=== PATIENT | male | born 1975 ===

== ENCOUNTER 2020-06-24 10:56 | Inpatient (IN) | payer BC ==
[2020-06-24 11:37] LABS: HEMOGLOBIN 13.9 g/dL (13.5-17.0); MEAN CORPUSCULAR HEMOGLOBIN 32.8 pg (27.0-33.4); MEAN CORPUSCULAR HGB CONC 35.7 g/dL (32.0-36.0); MEAN CORPUSCULAR VOLUME 92 fl (80-97); PLATELET COUNT 210 10^3/uL (150-450); RED BLOOD COUNT 4.24 10^6/uL (4.35-5.55); RED CELL DISTRIBUTION WIDTH 13.2 % (11.5-14.0); WHITE BLOOD COUNT 7.5 10^3/uL (4.0-10.5)
[2020-06-24] MEDS ORDERED: METHYLPREDNISOLONE INJ 125 MG/2 ML SDV IV ONE (11:51)
[2020-06-24] MEDS ORDERED: ALBUTEROL SULFATE 0.083% NEB 2.5 MG/3 ML AMPUL NEB ONE ×2 (11:51→12:22)
[2020-06-24 11:52] LABS: ALBUMIN 3.9 g/dL (3.5-5.0); ALKALINE PHOSPHATASE 66 U/L (38-126); ANION GAP 10 (5-19); ASPARTATE AMINO TRANSFERASE 27 U/L (17-59); BILIRUBIN,DIRECT 0.1 mg/dL (0.0-0.4); BILIRUBIN,TOTAL 1.6 mg/dL (0.2-1.3); BLOOD UREA NITROGEN 19 mg/dL (7-20); CALCIUM 8.8 mg/dL (8.4-10.2); CARBON DIOXIDE 20 mmol/L (22-30); CHLORIDE 101 mmol/L (98-107); GLUCOSE 120 mg/dL (75-110); POTASSIUM 4.2 mmol/L (3.6-5.0); TOTAL PROTEIN 7.1 g/dL (6.3-8.2)
--- NOTE | 2020-06-24 11:58 | RADIOLOGY REPORT (SQ) ---
EXAM DESCRIPTION: CHEST SINGLE VIEW IMAGES COMPLETED DATE/TIME: 06/24/2020 11:47 am REASON FOR STUDY: SOB COMPARISON: None. EXAM PARAMETERS: NUMBER OF VIEWS: One view. TECHNIQUE: Single frontal radiographic view of the chest acquired. RADIATION DOSE: NA LIMITATIONS: None. FINDINGS: LUNGS AND PLEURA: Ill-defined nodular opacity at the right lung base. No dense consolidat ion. No pleural effusion or pneumothorax. MEDIASTINUM AND HILAR STRUCTURES: No masses. Contour normal. HEART AND VASCULAR STRUCTURES: Heart normal in size. Normal vasculature. BONES: No acute findings. HARDWARE: None in the chest. OTHER: No other significant finding. IMPRESSION: Ill-defined nodular opacity at the right lung base, possibly focal airspace disease, nod ule or scarring. Recommend two-view follow-up to ensure resolution. TECHNICAL DOCUMENTATION: JOB ID: [id number] 2010 [employer]- All Rights Reserved Reading location - IP/workstation name: [email or web address]
[2020-06-24] MEDS: MAGNESIUM SULFATE/D5W 1 GM/100 ML RTUPB IV SCH ×2 (12:05→13:19)
[2020-06-24 12:09] LABS: ABSOLUTE LYMPHOCYTES# (MANUAL) 0.5 10^3/uL (0.5-4.7); ABSOLUTE MONOCYTES # (MANUAL) 0.2 10^3/uL (0.1-1.4); BAND NEUTROPHILS % (MANUAL) 4 % (3-5); BASOPHILS % (MANUAL) 0 % (0-2); EOSINOPHILS % (MANUAL) 0 % (0-6); LYMPHOCYTES % (MANUAL) 7 % (13-45); MONOCYTES % (MANUAL) 3 % (3-13); SEGMENTED NEUTROPHILS % (MAN) 86 % (42-78); TOTAL CELLS COUNTED 100
[2020-06-24 12:10] LABS: PLATELET COMMENT ADEQUATE; RBC MORPHOLOGY COMMENT NORMO-CYTIC/CHROMIC
[2020-06-24] MEDS ORDERED: RINGERS SOLUTION,LACTATED 1,000 ML IV ONE (12:25)
--- NOTE | 2020-06-24 12:43 | EKG REPORT ---
SEVERITY:- ABNORMAL ECG - SINUS TACHYCARDIA LEFT ATRIAL ABNORMALITY : Confirmed by: Shamar Fields MD 24-Jun-2020 12:42:49
--- NOTE | 2020-06-24 13:32 | ER Document Report ---
Entered by VEE EM SCRIBE 06/24/20 1144 Acting as scribe for:SCOTTY EAGLE MD ED Respiratory Problem - General Chief Complaint: Asthma Exacerbation Stated Complaint: SHORTNESS OF BREATH Time Seen by Provider: 06/24/20 11:41 Primary Care Provider: NADYA RODRIGUEZ MD [Primary Care Provider] - Follow up as needed Mode of Arrival: Medic Information source: Patient Notes: This 45 year old male patient with a history of asthma requiring intubation x4 (last in 1995) presents to the ED today via EMS with complaints of asthma exa cerbation. Patient states that has been increasingly short of breath for the past x1 week. He reports associated productive cough with clear mucus, but denies fever, nausea, or vomiting. He received a Xopenex breathing treatment and Solumedrol 125 mg IV via EMS. He did not receive a flu shot this year. Review of the patient external pharmacy records reveal that the patient was prescribed Prednisone 20 mg TID on 06/18 and Augmentin on 06/23. - Related Data Allergies/Adverse Reactions: atropine Adverse Reaction (Verified 06/24/20 11:09) Past Medical History - General Information source: Patient - Social History Smoking Status: Never Smoker Cigarette use (# per day): No Chew tobacco use (# tins/day): No Smoking Education Provided: No Frequency of alcohol use: Occasional Drug Abuse: None Family History: Reviewed & Not Pertinent Patient has suicidal ideation: No Patient has homicidal ideation: No Pulmonary Medical History: Reports: Hx Asthma, Hx Intubation - x4, last in 1995 Review of Systems - Review of Systems Constitutional: See HPI. denies: Fever EENT: No symptoms reported Cardiovascular: No symptoms reported Respiratory: See HPI, Cough, Short of breath, Sputum Gastrointestinal: See HPI. denies: Nausea, Vomiting Genitourinary: No symptoms reported Male Genitourinary: No symptoms reported Musculoskeletal: No symptoms reported Skin: No symptoms reported Hematologic/Lymphatic: No symptoms reported Neurological/Psychological: No symptoms reported -: Yes All other systems reviewed and negative Physical Exam - Vital signs Vitals: Temp Resp BP Pulse Ox 97.8 F 12 130/78 H 97 06/24/20 11:13 06/24/20 11:13 06/24/20 11:13 06/24/20 11:13 - General General appearance: Alert In distress: None - HEENT Head: Normocephalic, Atraumatic Eyes: Normal Pupils: PERRL - Respiratory Respiratory status: Other - Dyspneic with O2 saturation of 98% on 2L O2 via NC Chest status: Nontender, Prolonged expirations Breath sounds: Wheezing - Diffuse inspiratory and expiratory wheezing Chest palpation: Normal - Cardiovascular Rhythm: Regular Heart sounds: Normal auscultation Murmur: No Friction rub: No Gallop: None auscultated - Abdominal Inspection: Normal Distension: No distension Bowel sounds: Normal Tenderness: Nontender - Abdomen soft Organomegaly: No organomegaly - Back Back: Normal, Nontender - Extremities General upper extremity: Normal inspection General lower extremity: Normal inspection. No: Edema - Neurological Neuro grossly intact: Yes Orientation: AAOx4 [place] Coma Scale Eye Opening: Spontaneous [place] Coma Scale Verbal: Oriented [place] Coma Scale Motor: Obeys Commands [place] Coma Scale Total: 15 - Psychological Associated symptoms: Normal affect, Normal mood - Skin Skin Temperature: Warm Skin Moisture: Dry Skin Color: Normal Course - Re-evaluation Re-evalutation: 06/24/20 12:26 The patient was evaluated during the global COVID-19 pandemic and that diagnosis was suspected/considered upon their initial presentation. Their evaluation, treatment and testing was consistent with current guidelines for patients who present with complaints or symptoms that may be related to COVID-19. The patient came in by EMS and received a needed Xopenex breathing treatment and Solu-Medrol 125 mg IV. I was not aware of these treatments being done prior to seeing the patient so he got an additional dose of Solu-Medrol. 06/24/20 13:32 At this time the patient is on his second albuterol treatment. He states he feels like his breathing is getting better. On auscultation his wheezes are considerably improved from the first time I listen to him. 06/24/20 15:20 - Vital Signs Vital signs: Temp Pulse Resp BP Pulse Ox 98.2 F 115 H 12 163/98 H 98 06/24/20 14:45 06/24/20 11:15 06/24/20 15:01 06/24/20 15:00 06/24/20 15:01 - Laboratory Results Result Diagrams: 06/24/20 11:21 06/24/20 11:21 Laboratory Results Interpreted: 06/24/20 06/24/20 11:21 11:21 RBC 4.24 L Seg Neuts % (Manual) 86 H Lymphocytes % (Manual) 7 L Sodium 130.8 L Carbon Dioxide 20 L Glucose 120 H Total Bilirubin 1.6 H Critical Laboratory Results Reviewed: No Critical Results - Radiology Results Critical Radiology Results Reviewed: No Critical Results - Chest x-ray shows ill-defined nodular opacity right lung base, possibly focal airspace disease, nodule, or scarring. Recommend 2 view follow-up to ensure resolution. Suspect this is scarring due to the patient's past history of being intubated 4 times. - EKG Interpretation by Me EKG shows normal: Sinus rhythm, [place], Intervals, QRS Complexes, ST-T Waves Rate: Tachycardia - 105 P Waves: LAE When compared to previous EKG there are: Previous EKG unavailable - Consults Dr. Dove Time consulted: 14:35 Consulted provider: will come to ER Discharge - Discharge Clinical Impression: Asthma with acute exacerbation in adult Qualifiers: Asthma severity: moderate Asthma persistence: persistent Qualified Code(s): J45.41 - Moderate persistent asthma with (acute) exacerbation Condition: Stable Disposition: ADMITTED OBSERVATION Admitting Provider: Petty (Hospitalist) Unit Admitted: Medical Floor Referrals: NADYA RODRIGUEZ MD [Primary Care Provider] - Follow up as needed I personally performed the services described in the documentation, reviewed and edited the documentation which was dictated to the scribe in my presence, and it accurately records my words and actions.
[2020-06-24] MEDS ORDERED: ACETAMINOPHEN 325 MG TABLET PO PRN (16:28)
[2020-06-24] MEDS ORDERED: ONDANSETRON HCL INJ/PF 4 MG/2 ML SDV IV PRN (16:28)
[2020-06-24] MEDS: FLUTICASONE/VILANTEROL 100-25 MCG/DOSE IH SCH (18:15)
--- NOTE | 2020-06-24 19:30 | PDOC H&P ---
History of Present Illness Admission Date/PCP: 06/24/20 15:25 NADYA RODRIGUEZ MD Patient complains of: SOB History of Present Illness: PARAMJIT HALL is a 45 year old male, hx of asthma with 4 previous intubation last one 1995 for acute respiratory failure, HTN who came in the ED today due to shortness of breath. According to the patient he has been having shortness of breath with minimal cough for the past 1 week. He has increasingly used his rescue inhaler but still feels short of breath with associated wheezing. He denied any fever or recent exposure to Covid. ED blood pressure was 124/84, pulse rate of 87, respiratory rate of 18 O2 saturation of 96% on 2 L of nasal cannula, temperature 98.2. CBC was unremarkable, CMP showed mild hyponatremia 1 30.8, bicarb of 20, creatinine 0.9. Chest x-ray was unremarkable He consulted telehealth and was prescribed prednisone 1 week ago which did not help with his symptoms. Hospitalist service was called for further evaluation and management. Past Medical History Cardiac Medical History: Reports: Hypertension Pulmonary Medical History: Reports: Asthma, Intubation - x4, last in 1995 EENT Medical History: Reports: None Neurological Medical History: Reports: None Endocrine Medical History: Reports: None Renal/ Medical History: Reports: None Malignancy Medical History: Reports: None Past Surgical History Past Surgical History: Reports: Other - lip biopsy Social History Information Source: Patient Smoking Status: Never Smoker Electronic Cigarette use?: No Frequency of Alcohol Use: Occasional Hx Recreational Drug Use: No Drugs: None - Advance Directive Resuscitation Status: Full Code Family History Family History: CAD, DM Parental Family History Reviewed: Yes Children Family History Reviewed: Yes Sibling(s) Family History Reviewed.: Yes Medication/Allergy Home Medications: Albuterol Sulfate [Albuterol Sulfate Hfa] 2 puff PO Q4HP PRN 06/24/20 Amoxicillin/Potassium Clav [Augmentin 875-125 Tablet] 1 tab PO BID 06/24/20 Benzonatate 200 mg PO TID 06/24/20 Fluticasone/Salmeterol [Advair 100-50 Diskus 14 Dose/Diskus] 1 inh IH Q12 06/24/20 Guaifenesin [Mucinex] 1,200 mg PO BID 06/24/20 Prednisone [Deltasone 10 mg Tablet] 10 mg PO 5XD 06/24/20 Allergies/Adverse Reactions: atropine Adverse Reaction (Verified 06/24/20 11:09) Review of Systems Constitutional: ABSENT: chills, fatigue, fever(s), night sweats, weakness Eyes: ABSENT: visual disturbances Ears: ABSENT: hearing changes Nose, Mouth, and Throat: ABSENT: mouth pain Cardiovascular: ABSENT: edema, orthropnea, palpitations Respiratory: PRESENT: cough, dyspnea Musculoskeletal: ABSENT: back pain, deformity Integumentary: ABSENT: diaphoresis Neurological: ABSENT: abnormal movements, abnormal speech Physical Exam Vital Signs: Temp Pulse Resp BP Pulse Ox 98.2 F 87 18 124/84 96 06/24/20 16:47 06/24/20 16:47 06/24/20 16:47 06/24/20 16:47 06/24/20 16:47 Intake & Output 06/23/20 06/24/20 06/25/20 06:59 06:59 06:59 Intake Total 1200 Output Total 1300 Balance -100 Weight 92.986 kg General appearance: PRESENT: cooperative, mild distress Head exam: PRESENT: atraumatic, normocephalic Eye exam: PRESENT: EOMI, PERRLA Mouth exam: PRESENT: moist Neck exam: PRESENT: full ROM Respiratory exam: PRESENT: symmetrical, unlabored, wheezes. ABSENT: crackles, rales Cardiovascular exam: PRESENT: RRR, +S1, +S2 Pulses: PRESENT: +2 pedal pulses bilateral GI/Abdominal exam: PRESENT: normal bowel sounds, soft. ABSENT: rebound, tend erness Extremities exam: PRESENT: full ROM Musculoskeletal exam: PRESENT: full ROM Neurological exam: PRESENT: alert, awake, oriented to person, oriented to place, oriented to time, oriented to situation Psychiatric exam: PRESENT: normal mood Skin exam: PRESENT: normal color Results Laboratory Results: 06/24/20 11:21 06/24/20 11:21 06/24/20 06/24/20 11:21 11:21 WBC 7.5 RBC 4.24 L Hgb 13.9 Hct 39.0 MCV 92 MCH 32.8 MCHC 35.7 RDW 13.2 Plt Count 210 Seg Neutrophils % Not Reportable Sodium 130.8 L Potassium 4.2 Chloride 101 Carbon Dioxide 20 L Anion Gap 10 BUN 19 Creatinine 0.90 Est GFR ( Amer) > 60 Glucose 120 H Calcium 8.8 Total Bilirubin 1.6 H AST 27 Alkaline Phosphatase 66 Total Protein 7.1 Albumin 3.9 Impressions: Chest X-Ray 06/24/20 11:16 IMPRESSION: Ill-defined nodular opacity at the right lung base, possibly focal airspace disease, nodule or scarring. Recommend two-view follow-up to ensure resolution. Assessment and Plan - Diagnosis (1) Asthma with acute exacerbation in adult Qualifiers: Asthma severity: moderate Asthma persistence: persistent Qualified Code(s): J45.41 - Moderate persistent asthma with (acute) exacerbation Is this a current diagnosis for this admission?: Yes Plan: - came in due to 1 week hx of SOB and minimal cough - hx of prior intubation due to respiratory failure so he is a high risk - CXR no acute findings - +ve wheezes on exam - admit for obs - duoneb round the clock while awake - continue fluticasone + vilanterol - O2 support as needed - no indication for abx (2) Bronchial asthma Qualifiers: Asthma severity: mild Asthma persistence: persistent Asthma complication type: with acute exacerbation Qualified Code(s): J45.31 - Mild persistent asthma with (acute) exacerbation Is this a current diagnosis for this admission?: Yes Plan: - has a history of severe asthma with 4 previous intubation - usual triggers are cigarette smoke and cold weather - very rare episodes of exacerbation so he is mild intermittent - on advair as controller meds - proair as rescue inhaler - avoid triggers - suggest flu vaccine (3) Hypertension Qualifiers: Hypertension type: essential hypertension Qualified Code(s): I10 - Essential (primary) hypertension Is this a current diagnosis for this admission?: Yes Plan: - clonidine patch resumed (4) Respiratory insufficiency Is this a current diagnosis for this admission?: Yes Plan: - +ve wheexes - on 2L of NC wean off as tolerated - Time Time Spent with patient: 25-34 minutes Medications reviewed and adjusted accordingly: Yes Anticipated Discharge Disposition: Home, Self Care Anticipated Discharge Timeframe: within 24 hours
[2020-06-24] MEDS: IPRATROPIUM/ALBUTEROL 0.5-2.5 MG/3 ML AMPUL NEB SCH (20:26)
[2020-06-25] MEDS: IPRATROPIUM/ALBUTEROL 0.5-2.5 MG/3 ML AMPUL NEB SCH ×4 (08:19→20:23)
[2020-06-25] MEDS: FLUTICASONE/VILANTEROL 100-25 MCG/DOSE IH SCH (09:29)
[2020-06-25] MEDS: CLONIDINE 0.2 MG/24 HR PATCH.TDWK TD SCH (09:30)
[2020-06-25] MEDS: ENOXAPARIN SODIUM INJ 40 MG/0.4 ML DISP.SYRIN SUBCUT SCH (09:31)
[2020-06-25] MEDS ORDERED: METHYLPREDNISOLONE INJ 40 MG/1 ML SDV IV SCH (10:00)
[2020-06-25] MEDS ORDERED: METHYLPREDNISOLONE INJ 125 MG/2 ML SDV IV SCH (10:00)
--- NOTE | 2020-06-25 12:41 | PDOC PROGRESS REPORT ---
Subjective Date:: 06/25/20 Subjective:: 45 year old male, hx of asthma with 4 previous intubation last one 1995 for acut e respiratory failure, HTN who came in the ED today due to shortness of breath. According to the patient he has been having shortness of breath with minimal cough for the past 1 week. He has increasingly used his rescue inhaler but still feels short of breath with associated wheezing. He denied any fever or recent exposure to Covid. ED blood pressure was 124/84, pulse rate of 87, respiratory rate of 18 O2 saturation of 96% on 2 L of nasal cannula, temperature 98.2. CBC was unremarkable, CMP showed mild hyponatremia 130.8, bicarb of 20, creatinine 0.9. Chest x-ray was unremarkable He consulted telehealth and was prescribed prednisone 1 week ago which did not help with his symptoms. Hospitalist service was called for further evaluation and management. 07/[id number]-[id number]-old male with history of asthma admitted for acute exacerbation of asthma. Doing well. He is on IV Solu-Medrol 80 mg IV daily plan is to decrease the dose to 40 mg IV daily. Patient is stable most likely able to go home tomorrow. Reason For Visit: ASTHMA WITH ACUTE EXACERBATION IN ADULT Physical Exam Vital Signs: Temp Pulse Resp BP Pulse Ox 97.3 F 79 16 152/68 H 96 06/25/20 08:52 06/25/20 11:19 06/25/20 11:19 06/25/20 08:34 06/25/20 11:19 Intake & Output 06/24/20 06/25/20 06/26/20 06:59 06:59 06:59 Intake Total 2480 Output Total 1300 Balance 1180 Weight 92.9 kg General appearance: PRESENT: no acute distress Head exam: PRESENT: atraumatic Eye exam: PRESENT: PERRLA Mouth exam: PRESENT: moist, tongue midline Teeth exam: PRESENT: poor dentation Neck exam: ABSENT: carotid bruit, JVD, lymphadenopathy, thyromegaly Respiratory exam: PRESENT: decreased breath sounds Cardiovascular exam: PRESENT: RRR. ABSENT: diastolic murmur, rubs, systolic murmur Pulses: PRESENT: normal dorsalis pedis pul GI/Abdominal exam: PRESENT: normal bowel sounds, soft. ABSENT: distended, guarding, mass, organolmegaly, rebound, tenderness Rectal exam: PRESENT: deferred Extremities exam: PRESENT: full ROM. ABSENT: calf tenderness, clubbing, pedal edema Neurological exam: PRESENT: alert, awake, oriented to person, oriented to place, oriented to time, oriented to situation, CN II-XII grossly intact. ABSENT: motor sensory deficit Psychiatric exam: PRESENT: appropriate affect, normal mood. ABSENT: homicidal ideation, suicidal ideation Results Laboratory Results: 06/24/20 11:21 06/24/20 11:21 Impressions: Chest X-Ray 06/24/20 11:16 IMPRESSION: Ill-defined nodular opacity at the right lung base, possibly focal airspace disease, nodule or scarring. Recommend two-view follow-up to ensure resolution. Assessment and Plan - Diagnosis (1) Asthma with acute exacerbation in adult Qualifiers: Asthma severity: moderate Asthma persistence: persistent Qualified Code(s): J45.41 - Moderate persistent asthma with (acute) exacerbation Is this a current diagnosis for this admission?: Yes Plan: - came in due to 1 week hx of SOB and minimal cough - hx of prior intubation due to respiratory failure so he is a high risk - CXR no acute findings - +ve wheezes on exam - admit for obs - duoneb round the clock while awake - continue fluticasone + vilanterol - O2 support as needed - no indication for abx 06/25/2020-plan is to decrease the IV Solu-Medrol to 40 mg daily. On examination mild wheezing is present at the bases. Patient has a previous history of respiratory failure and intubations. To continue DuoNeb nebulizations. On examination patient is not on oxygen, pulse ox is 98%. (2) Bronchial asthma Qualifiers: Asthma severity: mild Asthma persistence: persistent Asthma complication type: with acute exacerbation Qualified Code(s): J45.31 - Mild persistent asthma with (acute) exacerbation Is this a current diagnosis for this admission?: No Plan: - has a history of severe asthma with 4 previous intubation - usual triggers are cigarette smoke and cold weather - very rare episodes of exacerbation so he is mild intermittent - on advair as controller meds - proair as rescue inhaler - avoid triggers - suggest flu vaccine (3) Hypertension Qualifiers: Hypertension type: essential hypertension Qualified Code(s): I10 - Essential (primary) hypertension Is this a current diagnosis for this admission?: No Plan: - clonidine patch resumed 06/25/2020-blood pressure today's 132/82. Stable. (4) Respiratory insufficiency Is this a current diagnosis for this admission?: Yes Plan: - +ve wheexes - on 2L of NC wean off as tolerated - Time Anticipated Discharge Disposition: Home, Self Care Anticipated Discharge Timeframe: within 24 hours
[2020-06-25] MEDS ORDERED: BENZONATATE 200 MG PO SCH (14:00)
[2020-06-25] MEDS: BENZONATATE 100 MG CAPSULE PO SCH ×2 (14:50→17:18)
[2020-06-25] MEDS: GUAIFENESIN 600 MG TABLET.SA PO SCH (17:18)
[2020-06-25] MEDS ORDERED: GUAIFENESIN 1200 MG PO SCH (18:00)
[2020-06-25] MEDS ORDERED: (PENDING PHARMACY ID) (Fluticasone/Salmeterol 14 INH/INHALER Inhaler) IH SCH (22:00)
[2020-06-26 05:17] LABS: ABSOLUTE LYMPHOCYTES (AUTO) 0.8 10^3/uL (0.5-4.7); ABSOLUTE MONOCYTES (AUTO) 0.5 10^3/uL (0.1-1.4); ABSOLUTE NEUT (AUTO) 6.9 10^3/uL (1.7-8.2); BASOPHILS % (AUTO) 0.1 % (0-2); EOSINOPHILS % (AUTO) 0.1 % (0-6); HEMATOCRIT 41.2 % (37.9-51.0); HEMOGLOBIN 14.6 g/dL (13.5-17.0); LYMPHOCYTES % (AUTO) 9.9 % (13-45); MEAN CORPUSCULAR HEMOGLOBIN 32.8 pg (27.0-33.4); MEAN CORPUSCULAR HGB CONC 35.5 g/dL (32.0-36.0); MEAN CORPUSCULAR VOLUME 92 fl (80-97); MONOCYTES % (AUTO) 6.6 % (3-13); PLATELET COUNT 243 10^3/uL (150-450); RED BLOOD COUNT 4.46 10^6/uL (4.35-5.55); RED CELL DISTRIBUTION WIDTH 13.6 % (11.5-14.0); SEGMENTED NEUTROPHILS % (AUTO) 83.3 % (42-78); TOTAL CELLS COUNTED % (AUTO) 100 %; WHITE BLOOD COUNT 8.3 10^3/uL (4.0-10.5)
[2020-06-26 05:40] LABS: ALBUMIN 3.6 g/dL (3.5-5.0); ALKALINE PHOSPHATASE 54 U/L (38-126); ANION GAP 7 (5-19); ASPARTATE AMINO TRANSFERASE 26 U/L (17-59); BILIRUBIN,TOTAL 0.9 mg/dL (0.2-1.3); BLOOD UREA NITROGEN 21 mg/dL (7-20); CALCIUM 8.5 mg/dL (8.4-10.2); CARBON DIOXIDE 26 mmol/L (22-30); CHLORIDE 102 mmol/L (98-107); GLUCOSE 90 mg/dL (75-110); POTASSIUM 4.2 mmol/L (3.6-5.0); TOTAL PROTEIN 6.8 g/dL (6.3-8.2)
[2020-06-26] MEDS: IPRATROPIUM/ALBUTEROL 0.5-2.5 MG/3 ML AMPUL NEB SCH ×4 (07:50→21:04)
[2020-06-26] MEDS ORDERED: FLUTICASONE/VILANTEROL 100-25 MCG/DOSE IH SCH (10:00)
[2020-06-26] MEDS ORDERED: METHYLPREDNISOLONE INJ 125 MG/2 ML SDV IV SCH (10:00)
[2020-06-26] MEDS: GUAIFENESIN 600 MG TABLET.SA PO SCH ×2 (12:00→17:38)
[2020-06-26] MEDS: BENZONATATE 100 MG CAPSULE PO SCH ×3 (12:00→17:39)
[2020-06-26] MEDS: METHYLPREDNISOLONE INJ 40 MG/1 ML SDV IV SCH (12:01)
[2020-06-26] MEDS: ENOXAPARIN SODIUM INJ 40 MG/0.4 ML DISP.SYRIN SUBCUT SCH (12:01)
[2020-06-26] MEDS: FLUTICASONE/VILANTEROL 100-25 MCG/DOSE IH SCH (12:01)
--- NOTE | 2020-06-26 13:43 | PDOC PROGRESS REPORT ---
Subjective Date:: 06/26/20 Subjective:: 45 year old male, hx of asthma with 4 previous intubation last one 1995 for acut e respiratory failure, HTN who came in the ED today due to shortness of breath. According to the patient he has been having shortness of breath with minimal cough for the past 1 week. He has increasingly used his rescue inhaler but still feels short of breath with associated wheezing. He denied any fever or recent exposure to Covid. ED blood pressure was 124/84, pulse rate of 87, respiratory rate of 18 O2 saturation of 96% on 2 L of nasal cannula, temperature 98.2. CBC was unremarkable, CMP showed mild hyponatremia 130.8, bicarb of 20, creatinine 0.9. Chest x-ray was unremarkable He consulted telehealth and was prescribed prednisone 1 week ago which did not help with his symptoms. Hospitalist service was called for further evaluation and management. 06/25/[id number]-ypkc-old male with history of asthma admitted for acute exacerbation of asthma. Doing well. He is on IV Solu-Medrol 80 mg IV daily plan is to decrease the dose to 40 mg IV daily. Patient is stable most likely able to go home tomorrow. 06/26/[id number]-tfnt-old male admitted with shortness of breath. Has history of asthma. Patient states he is not feeling well today complaining of chest tightness. Requesting to be checked for the COVID-19. He is also complaining of dehydrated requesting IV fluids. Reason For Visit: ASTHMA WITH ACUTE EXACERBATION IN ADULT Physical Exam Vital Signs: Temp Pulse Resp BP Pulse Ox 98.2 F 115 H 16 124/64 96 06/26/20 11:03 06/26/20 11:28 06/26/20 11:28 06/26/20 11:03 06/26/20 11:28 Intake & Output 06/25/20 06/26/20 06/27/20 06:59 06:59 06:59 Intake Total 2480 1116 150 Output Total 1300 Balance 1180 1116 150 Weight 92.9 kg 92.9 kg General appearance: PRESENT: no acute distress, well-developed Head exam: PRESENT: atraumatic Eye exam: PRESENT: PERRLA Mouth exam: PRESENT: moist, tongue midline Teeth exam: PRESENT: poor dentation Neck exam: ABSENT: carotid bruit, JVD, lymphadenopathy, thyromegaly Respiratory exam: PRESENT: decreased breath sounds, wheezes Cardiovascular exam: PRESENT: RRR. ABSENT: diastolic murmur, rubs, systolic mur mur GI/Abdominal exam: PRESENT: normal bowel sounds, soft. ABSENT: distended, guarding, mass, organolmegaly, rebound, tenderness Rectal exam: PRESENT: deferred Extremities exam: PRESENT: full ROM. ABSENT: calf tenderness, clubbing, pedal edema Neurological exam: PRESENT: alert, awake, oriented to person, oriented to place, oriented to time, oriented to situation, CN II-XII grossly intact. ABSENT: motor sensory deficit Psychiatric exam: PRESENT: appropriate affect, normal mood. ABSENT: homicidal ideation, suicidal ideation Results Laboratory Results: 06/26/20 04:20 06/26/20 04:20 06/26/20 06/26/20 04:20 04:20 WBC 8.3 RBC 4.46 Hgb 14.6 Hct 41.2 MCV 92 MCH 32.8 MCHC 35.5 RDW 13.6 Plt Count 243 Seg Neutrophils % 83.3 H Sodium 135.3 L Potassium 4.2 Chloride 102 Carbon Dioxide 26 Anion Gap 7 BUN 21 H Creatinine 0.83 Est GFR ( Amer) > 60 Glucose 90 Calcium 8.5 Magnesium 2.1 Total Bilirubin 0.9 AST 26 Alkaline Phosphatase 54 Total Protein 6.8 Albumin 3.6 Impressions: Chest X-Ray 06/24/20 11:16 IMPRESSION: Ill-defined nodular opacity at the right lung base, possibly focal airspace disease, nodule or scarring. Recommend two-view follow-up to ensure re solution. Assessment and Plan - Diagnosis (1) Asthma with acute exacerbation in adult Qualifiers: Asthma severity: moderate Asthma persistence: persistent Qualified Code( s): J45.41 - Moderate persistent asthma with (acute) exacerbation Is this a current diagnosis for this admission?: Yes Plan: - came in due to 1 week hx of SOB and minimal cough - hx of prior intubation due to respiratory failure so he is a high risk - CXR no acute findings - +ve wheezes on exam - admit for obs - duoneb round the clock while awake - continue fluticasone + vilanterol - O2 support as needed - no indication for abx 06/25/2020-plan is to decrease the IV Solu-Medrol to 40 mg daily. On examination mild wheezing is present at the bases. Patient has a previous history of respiratory failure and intubations. To continue DuoNeb nebulizations. On examination patient is not on oxygen, pulse ox is 98%. 06/26/20-to arrange for the CT chest with contrast today, to continue IV Solu- Medrol. Covid test will be done today. (2) Bronchial asthma Qualifiers: Asthma severity: mild Asthma persistence: persistent Asthma complication type: with acute exacerbation Qualified Code(s): J45.31 - Mild persistent asthma with (acute) exacerbation Is this a current diagnosis for this admission?: No Plan: - has a history of severe asthma with 4 previous intubation - usual triggers are cigarette smoke and cold weather - very rare episodes of exacerbation so he is mild intermittent - on advair as controller meds - proair as rescue inhaler - avoid triggers - suggest flu vaccine (3) Hypertension Qualifiers: Hypertension type: essential hypertension Qualified Code(s): I10 - Essential (primary) hypertension Is this a current diagnosis for this admission?: No Plan: - clonidine patch resumed 06/25/2020-blood pressure today's 132/82. Stable. (4) Respiratory insufficiency Is this a current diagnosis for this admission?: Yes Plan: - +ve wheexes - on 2L of NC wean off as tolerated - Time Anticipated Discharge Disposition: Home, Self Care Anticipated Discharge Timeframe: within 24 hours
[2020-06-26] MEDS: NORMAL SALINE 1000 ML 1,000 ML IV PRN ×2 (14:21→17:39)
[2020-06-27] MEDS: NORMAL SALINE 1000 ML 1,000 ML IV PRN (02:15)
[2020-06-27 06:53] LABS: ALBUMIN 3.3 g/dL (3.5-5.0); ALKALINE PHOSPHATASE 62 U/L (38-126); ANION GAP 7 (5-19); ASPARTATE AMINO TRANSFERASE 31 U/L (17-59); BILIRUBIN,TOTAL 1.2 mg/dL (0.2-1.3); BLOOD UREA NITROGEN 16 mg/dL (7-20); CALCIUM 8.6 mg/dL (8.4-10.2); CARBON DIOXIDE 22 mmol/L (22-30); CHLORIDE 103 mmol/L (98-107); GLUCOSE 107 mg/dL (75-110); TOTAL PROTEIN 6.4 g/dL (6.3-8.2)
[2020-06-27 06:54] LABS: HEMATOCRIT 40.3 % (37.9-51.0); MEAN CORPUSCULAR HEMOGLOBIN 31.9 pg (27.0-33.4); MEAN CORPUSCULAR HGB CONC 34.7 g/dL (32.0-36.0); MEAN CORPUSCULAR VOLUME 92 fl (80-97); PLATELET COUNT 215 10^3/uL (150-450); RED BLOOD COUNT 4.39 10^6/uL (4.35-5.55); RED CELL DISTRIBUTION WIDTH 13.2 % (11.5-14.0); WHITE BLOOD COUNT 10.6 10^3/uL (4.0-10.5)
[2020-06-27 07:44] LABS: ABSOLUTE LYMPHOCYTES# (MANUAL) 0.8 10^3/uL (0.5-4.7); ABSOLUTE MONOCYTES # (MANUAL) 0.3 10^3/uL (0.1-1.4); BASOPHILS % (MANUAL) 0 % (0-2); EOSINOPHILS % (MANUAL) 0 % (0-6); LYMPHOCYTES % (MANUAL) 8 % (13-45); MONOCYTES % (MANUAL) 3 % (3-13); SEGMENTED NEUTROPHILS % (MAN) 89 % (42-78); TOTAL CELLS COUNTED 100
[2020-06-27 07:45] LABS: PLATELET COMMENT ADEQUATE; RBC MORPHOLOGY COMMENT NORMO-CYTIC/CHROMIC
[2020-06-27] MEDS: IPRATROPIUM/ALBUTEROL 0.5-2.5 MG/3 ML AMPUL NEB SCH ×4 (08:43→21:07)
--- NOTE | 2020-06-27 10:07 | PDOC PROGRESS REPORT ---
Subjective Date:: 06/27/20 Subjective:: 45 year old male, hx of asthma with 4 previous intubation last one 1995 for acut e respiratory failure, HTN who came in the ED today due to shortness of breath. According to the patient he has been having shortness of breath with minimal cough for the past 1 week. He has increasingly used his rescue inhaler but still feels short of breath with associated wheezing. He denied any fever or recent exposure to Covid. ED blood pressure was 124/84, pulse rate of 87, respiratory rate of 18 O2 saturation of 96% on 2 L of nasal cannula, temperature 98.2. CBC was unremarkable, CMP showed mild hyponatremia 130.8, bicarb of 20, creatinine 0.9. Chest x-ray was unremarkable He consulted telehealth and was prescribed prednisone 1 week ago which did not help with his symptoms. Hospitalist service was called for further evaluation and management. 06/25/[id number]-emyn-old male with history of asthma admitted for acute exacerbation of asthma. Doing well. He is on IV Solu-Medrol 80 mg IV daily plan is to decrease the dose to 40 mg IV daily. Patient is stable most likely able to go home tomorrow. 06/26/[id number]-ytpt-old male admitted with shortness of breath. Has history of asthma. Patient states he is not feeling well today complaining of chest tightness. Requesting to be checked for the COVID-19. He is also complaining of dehydrated requesting IV fluids. 06/27/[id number]-sgcb-old male admitted with asthma exacerbation. Found to be COVID-[address] of the chest results are pending. Patient is going to receive plasma, ivermectin, he is already on steroids, to continue vitamin supplementations. Plan is to check daily ferritin, CRP, D-dimer levels. Presen tly on 2 L of oxygen at this time. Reason For Visit: ASTHMA WITH ACUTE EXACERBATION IN ADULT Physical Exam Vital Signs: Temp Pulse Resp BP Pulse Ox 99.4 F 97 16 145/92 H 92 06/27/20 07:49 06/27/20 08:43 06/27/20 08:43 06/27/20 03:33 06/27/20 08:43 Intake & Output 06/26/20 06/27/20 06/28/20 06:59 06:59 06:59 Intake Total 1116 1645 Balance 1116 1645 Weight 92.9 kg 91 kg General appearance: PRESENT: no acute distress, well-developed Head exam: PRESENT: atraumatic Eye exam: PRESENT: PERRLA Ear exam: PRESENT: normal external ear exam Mouth exam: PRESENT: neck supple Neck exam: ABSENT: carotid bruit, JVD, lymphadenopathy, thyromegaly Respiratory exam: PRESENT: decreased breath sounds Cardiovascular exam: PRESENT: RRR. ABSENT: diastolic murmur, rubs, systolic murmur GI/Abdominal exam: PRESENT: normal bowel sounds, soft. ABSENT: distended, guarding, mass, organolmegaly, rebound, tenderness Rectal exam: PRESENT: deferred Extremities exam: PRESENT: full ROM. ABSENT: calf tenderness, clubbing, pedal edema Neurological exam: PRESENT: alert, awake, oriented to person, oriented to place, oriented to time, oriented to situation, CN II-XII grossly intact. ABSENT: motor sensory deficit Psychiatric exam: PRESENT: appropriate affect, normal mood. ABSENT: homicidal ideation, suicidal ideation Results Laboratory Results: 06/27/20 05:58 06/27/20 05:58 06/27/20 06/27/20 05:58 05:58 WBC 10.6 H RBC 4.39 Hgb 14.0 Hct 40.3 MCV 92 MCH 31.9 MCHC 34.7 RDW 13.2 Plt Count 215 Seg Neutrophils % Not Reportable Sodium 132.0 L Potassium 4.0 Chloride 103 Carbon Dioxide 22 Anion Gap 7 BUN 16 Creatinine 0.71 Est GFR ( Amer) > 60 Glucose 107 Calcium 8.6 Magnesium 1.8 Total Bilirubin 1.2 AST 31 Alkaline Phosphatase 62 Total Protein 6.4 Albumin 3.3 L Impressions: Chest X-Ray 06/24/20 11:16 IMPRESSION: Ill-defined nodular opacity at the right lung base, possibly focal airspace disease, nodule or scarring. Recommend two-view follow-up to ensure resolution. Assessment and Plan - Diagnosis (1) Asthma with acute exacerbation in adult Qualifiers: Asthma severity: moderate Asthma persistence: persistent Qualified Code(s): J45.41 - Moderate persistent asthma with (acute) exacerbation Is this a current diagnosis for this admission?: Yes Plan: - came in due to 1 week hx of SOB and minimal cough - hx of prior intubation due to respiratory failure so he is a high risk - CXR no acute findings - +ve wheezes on exam - admit for obs - duoneb round the clock while awake - continue fluticasone + vilanterol - O2 support as needed - no indication for abx 06/25/2020-plan is to decrease the IV Solu-Medrol to 40 mg daily. On examination mild wheezing is present at the bases. Patient has a previous history of respiratory failure and intubations. To continue DuoNeb nebulizations. On examination patient is not on oxygen, pulse ox is 98%. 06/26/20-to arrange for the CT chest with contrast today, to continue IV Solu- Medrol. Covid test will be done today. 06/27/2020-CTA results are pending. To continue IV Solu-Medrol. COVID-19 positive. Started on ivermectin. To continue vitamin supplementations. To continue Lovenox prophylactic dose. To hold the remdesivir at this time. Start on IV Rocephin, Zithromax. (2) Bronchial asthma Qualifiers: Asthma severity: mild Asthma persistence: persistent Asthma complication type: with acute exacerbation Qualified Code(s): J45.31 - Mild persistent asthma with (acute) exacerbation Is this a current diagnosis for this admission?: No Plan: - has a history of severe asthma with 4 previous intubation - usual triggers are cigarette smoke and cold weather - very rare episodes of exacerbation so he is mild intermittent - on advair as controller meds - proair as rescue inhaler - avoid triggers - suggest flu vaccine 06/27/2020-on examination chest bilateral decreased mild wheezing at present at the bases. To continue IV Solu-Medrol at this time. (3) Hypertension Qualifiers: Hypertension type: essential hypertension Qualified Code(s): I10 - Essential (primary) hypertension Is this a current diagnosis for this admission?: No Plan: - clonidine patch resumed 06/25/2020-blood pressure today's 132/82. Stable. 06/27/2020-blood pressure is 145/92. Stable. (4) Respiratory insufficiency Is this a current diagnosis for this admission?: Yes Plan: - +ve wheexes - on 2L of NC wean off as tolerated (5) COVID-19 Is this a current diagnosis for this admission?: Yes Plan: 06/27/2020-patient was tested positive for COVID-19. Started on IV Rimactane, and IV Solu-Medrol, started on zinc, vitamin D, vitamin C. To continue IV Solu-Medrol. To continue provide oxygen supplementations. CT of the chest report is pending at this time. To start on IV Rocephin, Zithromax. - Time Anticipated Discharge Disposition: Home, Self Care Anticipated Discharge Timeframe: within 48 hours
[2020-06-27] MEDS: METHYLPREDNISOLONE INJ 40 MG/1 ML SDV IV SCH (10:21)
[2020-06-27] MEDS: BENZONATATE 100 MG CAPSULE PO SCH ×3 (10:21→17:36)
[2020-06-27] MEDS: GUAIFENESIN 600 MG TABLET.SA PO SCH ×2 (10:21→17:36)
[2020-06-27] MEDS: ENOXAPARIN SODIUM INJ 40 MG/0.4 ML DISP.SYRIN SUBCUT SCH (10:21)
[2020-06-27] MEDS: IVERMECTIN 3 MG TABLET PO SCH (10:22)
[2020-06-27] MEDS: FLUTICASONE/VILANTEROL 100-25 MCG/DOSE IH SCH (10:23)
[2020-06-27] MEDS: ASPIRIN 81 MG TABLET, ENT COATED PO SCH (10:25)
[2020-06-27] MEDS: ZINC SULFATE 220 MG CAPSULE PO SCH (10:25)
[2020-06-27] MEDS: ASCORBIC ACID 500 MG TABLET PO SCH ×2 (10:25→17:36)
[2020-06-27] MEDS: CHOLECALCIFEROL (D3) 1,000 UNIT (25 MCG) TABLET PO SCH (10:25)
--- NOTE | 2020-06-27 15:25 | RADIOLOGY REPORT (SQ) ---
EXAM DESCRIPTION: CT CHEST WITH IMAGES COMPLETED DATE/TIME: 06/26/2020 5:12 pm REASON FOR STUDY: dyspnea COMPARISON: Chest x-ray 06/24/2020 TECHNIQUE: CT scan of the chest performed using helical scanning technique with dynamic intravenous contrast injection. Images reviewed with lung, soft tissue and bone windows. Reconstructed coronal and sagittal MPR and MIP images reviewed. All images stored on PACS. All CT scanners at this facility use dose modulation, iterative reconstruction, and/or weight based d osing when appropriate to reduce radiation dose to as low as reasonably achievable (ALARA). [facility]: Dose Right [facility]: CareDose [facility]: Dose Right [facility]: Teradose 4D [facility]: [place] CONTRAST TYPE AND DOSE: contrast/concentration: Isovue 350.00 mmol/ml; Total Contrast Delivered: 80. 0 ml; Total Saline Delivered: 55.0 ml RENAL FUNCTION: BUN 21 creatinine 0.83 RADIATION DOSE: CT Rad equipment meets quality standard of care and radiation dose reduction techniq ues were employed. CTDIvol: 10.1 mGy. DLP: 435 mGy-cm. . LIMITATIONS: None. FINDINGS: LUNGS AND PLEURA: There is patchy, peripheral ground-glass opacification bilaterally. No focal dense consolidation. No pleural effusion. HILAR AND MEDIASTINAL STRUCTURES: No identified masses or abnormal nodes. HEART AND VASCULAR STRUCTURES: No aneurysm or dissection. No central pulmonary emboli. No pericardi al effusion. HARDWARE: None in the chest. UPPER ABDOMEN: No significant findings. Limited exam. THYROID AND OTHER SOFT TISSUES: No masses. No adenopathy. BONES: No significant finding. OTHER: No other significant finding. IMPRESSION: There is patchy, peripheral ground-glass opacification bilaterally. The findings are no nspecific but are consistent with an atypical infectious/ inflammatory process such as COVID-19 pneum onia. TECHNICAL DOCUMENTATION: JOB ID: [id number] Quality ID # [id number]: Final reports with documentation of one or more dose reduction techniques (e.g., Au tomated exposure control, adjustment of the mA and/or kV according to patient size, use of iterative reconstruction technique) 2010 [employer]- All Rights Reserved Reading location - IP/workstation name: [email or web address]
[2020-06-27] MEDS ORDERED: IBUPROFEN 600 MG TABLET PO PRN (18:56)
[2020-06-27] MEDS: ACETAMINOPHEN 325 MG TABLET PO SCH (19:14)
[2020-06-28 07:52] LABS: C-REACTIVE PROTEIN 263.9 mg/L (<10.0)
[2020-06-28] MEDS: IPRATROPIUM/ALBUTEROL 0.5-2.5 MG/3 ML AMPUL NEB SCH ×4 (08:26→21:22)
[2020-06-28] MEDS: GUAIFENESIN 600 MG TABLET.SA PO SCH ×2 (09:19→17:44)
[2020-06-28] MEDS: BENZONATATE 100 MG CAPSULE PO SCH ×3 (09:19→17:44)
[2020-06-28] MEDS: ASPIRIN 81 MG TABLET, ENT COATED PO SCH (09:19)
[2020-06-28] MEDS: ACETAMINOPHEN 325 MG TABLET PO SCH ×3 (09:20→17:44)
[2020-06-28] MEDS: ENOXAPARIN SODIUM INJ 40 MG/0.4 ML DISP.SYRIN SUBCUT SCH (09:20)
[2020-06-28] MEDS: ZINC SULFATE 220 MG CAPSULE PO SCH (09:20)
[2020-06-28] MEDS: ASCORBIC ACID 500 MG TABLET PO SCH ×2 (09:20→17:44)
[2020-06-28] MEDS: CHOLECALCIFEROL (D3) 1,000 UNIT (25 MCG) TABLET PO SCH (09:20)
[2020-06-28] MEDS: CEFTRIAXONE 1 GM/D5W RTU 1 GM/50 ML RTUPB IV SCH (09:21)
[2020-06-28] MEDS: METHYLPREDNISOLONE INJ 40 MG/1 ML SDV IV SCH (09:21)
[2020-06-28] MEDS ORDERED: AZITHROMYCIN INJ 500 MG VIAL IV SCH (10:00)
--- NOTE | 2020-06-28 10:57 | PDOC PROGRESS REPORT ---
Subjective Date:: 06/28/19 Subjective:: 45 year old male, hx of asthma with 4 previous intubation last one 1995 for acut e respiratory failure, HTN who came in the ED today due to shortness of breath. According to the patient he has been having shortness of breath with minimal cough for the past 1 week. He has increasingly used his rescue inhaler but still feels short of breath with associated wheezing. He denied any fever or recent exposure to Covid. ED blood pressure was 124/84, pulse rate of 87, respiratory rate of 18 O2 saturation of 96% on 2 L of nasal cannula, temperature 98.2. CBC was unremarkable, CMP showed mild hyponatremia 130.8, bicarb of 20, creatinine 0.9. Chest x-ray was unremarkable He consulted telehealth and was prescribed prednisone 1 week ago which did not help with his symptoms. Hospitalist service was called for further evaluation and management. 06/25/[id number]-huig-old male with history of asthma admitted for acute exacerbation of asthma. Doing well. He is on IV Solu-Medrol 80 mg IV daily plan is to decrease the dose to 40 mg IV daily. Patient is stable most likely able to go home tomorrow. 06/26/[id number]-odjq-old male admitted with shortness of breath. Has history of asthma. Patient states he is not feeling well today complaining of chest tightness. Requesting to be checked for the COVID-19. He is also complaining of dehydrated requesting IV fluids. 06/27/[id number]-llsq-old male admitted with asthma exacerbation. Found to be COVID-[address] of the chest results are pending. Patient is going to receive plasma, ivermectin, he is already on steroids, to continue vitamin supplementations. Plan is to check daily ferritin, CRP, D-dimer levels. Presen tly on 2 L of oxygen at this time. 06/28/[id number]-egdd-old male admitted with asthma exacerbation. Found to be COVID- 19 positive. Pulse ox is 94% on 3 L. Waiting for the plasma availability. Patient is receiving ivermectin, started on IV Rocephin, Zithromax. To continue vitamin supplementations. To continue IV Solu-Medrol. Reason For Visit: EXACERBATION ASTHMA, COVID-19 Physical Exam Vital Signs: Temp Pulse Resp BP Pulse Ox 97.7 F 105 H 16 123/75 93 06/28/20 09:38 06/28/20 08:28 06/28/20 08:28 06/28/20 08:28 06/28/20 08:28 Intake & Output 06/27/20 06/28/20 06/29/20 06:59 06:59 06:59 Intake Total 1645 1900 Balance 1645 1900 Weight 91 kg 89.7 kg General appearance: PRESENT: no acute distress Head exam: PRESENT: atraumatic Eye exam: PRESENT: PERRLA Mouth exam: PRESENT: moist, tongue midline Teeth exam: PRESENT: poor dentation Neck exam: ABSENT: carotid bruit, JVD, lymphadenopathy, thyromegaly Respiratory exam: PRESENT: decreased breath sounds, wheezes Cardiovascular exam: PRESENT: RRR. ABSENT: diastolic murmur, rubs, systolic murmur GI/Abdominal exam: PRESENT: normal bowel sounds, soft. ABSENT: distended, guarding, mass, organolmegaly, rebound, tenderness Rectal exam: PRESENT: deferred Extremities exam: PRESENT: full ROM. ABSENT: calf tenderness, clubbing, pedal edema Neurological exam: PRESENT: alert, awake, oriented to person, oriented to place, oriented to time, oriented to situation, CN II-XII grossly intact. ABSENT: motor sensory deficit Psychiatric exam: PRESENT: appropriate affect, normal mood. ABSENT: homicidal ideation, suicidal ideation Results Laboratory Results: 06/27/20 05:58 06/27/20 05:58 06/27/20 06/28/20 10:29 05:44 Ferritin 703.00 H C-Reactive Protein 263.9 H Blood Type O NEGATIVE Impressions: Chest X-Ray 06/24/20 11:16 IMPRESSION: Ill-defined nodular opacity at the right lung base, possibly focal airspace disease, nodule or scarring. Recommend two-view follow-up to ensure r esolution. Chest CT 06/26/20 00:00 IMPRESSION: There is patchy, peripheral ground-glass opacification bilaterally. The findings are nonspecific but are consistent with an atypical infectious/ inflammatory process such as COVID-19 pneumonia. Assessment and Plan - Diagnosis (1) Asthma with acute exacerbation in adult Qualifiers: Asthma severity: moderate Asthma persistence: persistent Qualified Code(s): J45.41 - Moderate persistent asthma with (acute) exacerbation Is this a current diagnosis for this admission?: Yes Plan: - came in due to 1 week hx of SOB and minimal cough - hx of prior intubation due to respiratory failure so he is a high risk - CXR no acute findings - +ve wheezes on exam - admit for obs - duoneb round the clock while awake - continue fluticasone + vilanterol - O2 support as needed - no indication for abx 06/25/2020-plan is to decrease the IV Solu-Medrol to 40 mg daily. On examination mild wheezing is present at the bases. Patient has a previous history of respiratory failure and intubations. To continue DuoNeb nebulizations. On examination patient is not on oxygen, pulse ox is 98%. 06/26/20-to arrange for the CT chest with contrast today, to continue IV Solu- Medrol. Covid test will be done today. 06/27/2020-CTA results are pending. To continue IV Solu-Medrol. COVID-19 positive. Started on ivermectin. To continue vitamin supplementations. To continue Lovenox prophylactic dose. To hold the remdesivir at this time. Start on IV Rocephin, Zithromax. 06/28/2019-CT of the chest indicated for bilateral infiltrates suggestive of COVID-19 pneumonia. Order placed for plasma infusion but waiting for the availability. To continue ivermectin, IV Solu-Medrol, IV Rocephin, Zithromax. Patient is on 3 L pulse ox is 94%. (2) Bronchial asthma Qualifiers: Asthma severity: mild Asthma persistence: persistent Asthma complication type: with acute exacerbation Qualified Code(s): J45.31 - Mild persistent asthma with (acute) exacerbation Is this a current diagnosis for this admission?: No Plan: - has a history of severe asthma with 4 previous intubation - usual triggers are cigarette smoke and cold weather - very rare episodes of exacerbation so he is mild intermittent - on advair as controller meds - proair as rescue inhaler - avoid triggers - suggest flu vaccine 06/27/2020-on examination chest bilateral decreased mild wheezing at present at the bases. To continue IV Solu-Medrol at this time. (3) Hypertension Qualifiers: Hypertension type: essential hypertension Qualified Code(s): I10 - Essential (primary) hypertension Is this a current diagnosis for this admission?: No Plan: - clonidine patch resumed 06/25/2020-blood pressure today's 132/82. Stable. 06/27/2020-blood pressure is 145/92. Stable. (4) Respiratory insufficiency Is this a current diagnosis for this admission?: Yes Plan: - +ve wheexes - on 2L of NC wean off as tolerated (5) COVID-19 Is this a current diagnosis for this admission?: Yes Plan: 06/27/2020-patient was tested positive for COVID-19. Started on IV Rimactane, and IV Solu-Medrol, started on zinc, vitamin D, vitamin C. To continue IV Solu- Medrol. To continue provide oxygen supplementations. CT of the chest report is pending at this time. To start on IV Rocephin, Zithromax. - Time Anticipated Discharge Disposition: Home, Self Care Anticipated Discharge Timeframe: within 72 hours
[2020-06-28] MEDS: AZITHROMYCIN 500 MG in DEXTROSE 5%-WATER 250 ML IV SCH (12:00)
[2020-06-28] MEDS: FLUTICASONE/VILANTEROL 100-25 MCG/DOSE IH SCH (12:01)
[2020-06-29 06:23] LABS: C-REACTIVE PROTEIN 254.1 mg/L (<10.0)
[2020-06-29] MEDS: IPRATROPIUM/ALBUTEROL 0.5-2.5 MG/3 ML AMPUL NEB SCH ×4 (07:45→20:06)
[2020-06-29] MEDS: ASCORBIC ACID 500 MG TABLET PO SCH ×2 (10:03→17:15)
[2020-06-29] MEDS: GUAIFENESIN 600 MG TABLET.SA PO SCH ×2 (10:04→17:15)
[2020-06-29] MEDS: METHYLPREDNISOLONE INJ 40 MG/1 ML SDV IV SCH ×2 (10:04→21:39)
[2020-06-29] MEDS: BENZONATATE 100 MG CAPSULE PO SCH ×3 (10:04→17:14)
[2020-06-29] MEDS: ASPIRIN 81 MG TABLET, ENT COATED PO SCH (10:04)
[2020-06-29] MEDS: ENOXAPARIN SODIUM INJ 40 MG/0.4 ML DISP.SYRIN SUBCUT SCH (10:04)
[2020-06-29] MEDS: ACETAMINOPHEN 325 MG TABLET PO SCH ×3 (10:04→17:15)
[2020-06-29] MEDS: ZINC SULFATE 220 MG CAPSULE PO SCH (10:04)
[2020-06-29] MEDS: CHOLECALCIFEROL (D3) 1,000 UNIT (25 MCG) TABLET PO SCH (10:04)
[2020-06-29] MEDS: IVERMECTIN 3 MG TABLET PO SCH (10:05)
[2020-06-29] MEDS: FLUTICASONE/VILANTEROL 100-25 MCG/DOSE IH SCH (10:05)
[2020-06-29] MEDS: CEFTRIAXONE 1 GM/D5W RTU 1 GM/50 ML RTUPB IV SCH (10:05)
[2020-06-29] MEDS: AZITHROMYCIN 500 MG in DEXTROSE 5%-WATER 250 ML IV SCH (12:08)
[2020-06-29] MEDS: VITAMIN B COMPLEX TABLET PO SCH (14:03)
[2020-06-29] MEDS ORDERED: NORMAL SALINE 1000 ML 1,000 ML IV ONE (17:44)
[2020-06-29] MEDS ORDERED: LOPERAMIDE HCL 2 MG CAPSULE PO PRN (17:44)
--- NOTE | 2020-06-29 17:49 | PDOC PROGRESS REPORT ---
Subjective Date:: 06/29/20 Subjective:: No adverse events overnight. No new complaints. Vital signs been stable. He h as had a couple of episodes of diarrhea. He has been stable on 7 L per nasal cannula. Reason For Visit: EXACERBATION ASTHMA, COVID-19 Physical Exam Vital Signs: Temp Pulse Resp BP Pulse Ox 98.1 F 88 16 136/88 H 93 06/29/20 16:00 06/29/20 16:02 06/29/20 16:02 06/29/20 16:00 06/29/20 16:02 Intake & Output 06/28/20 06/29/20 06/30/20 06:59 06:59 06:59 Intake Total 6360 468 1544 Output Total 600 Balance 5483 711 8769 Weight 89.7 kg 89.7 kg General appearance: PRESENT: no acute distress Respiratory exam: PRESENT: decreased breath sounds, expiratory wheezes Cardiovascular exam: PRESENT: RRR. ABSENT: diastolic murmur, rubs, systolic murmur GI/Abdominal exam: PRESENT: normal bowel sounds, soft. ABSENT: distended, guarding, mass, organolmegaly, rebound, tenderness Extremities exam: PRESENT: full ROM. ABSENT: calf tenderness, clubbing, pedal edema Neurological exam: PRESENT: alert, awake, oriented to person, oriented to place, oriented to time, oriented to situation Psychiatric exam: PRESENT: appropriate affect, normal mood. Results Laboratory Results: 06/27/20 05:58 06/27/20 05:58 06/29/20 05:07 Ferritin 798.00 H C-Reactive Protein 254.1 H Impressions: Chest X-Ray 06/24/20 11:16 IMPRESSION: Ill-defined nodular opacity at the right lung base, possibly focal airspace disease, nodule or scarring. Recommend two-view follow-up to ensure resolution. Chest CT 06/26/20 00:00 IMPRESSION: There is patchy, peripheral ground-glass opacification bilaterally. The findings are nonspecific but are consistent with an atypical infectious/ inflammatory process such as COVID-19 pneumonia. Assessment and Plan - Diagnosis (1) Acute hypoxemic respiratory failure Is this a current diagnosis for this admission?: Yes (2) COVID-19 Is this a current diagnosis for this admission?: Yes (3) Asthma with acute exacerbation in adult Qualifiers: Asthma severity: moderate Asthma persistence: persistent Qualified Code(s): J45.41 - Moderate persistent asthma with (acute) exacerbation Is this a current diagnosis for this admission?: Yes (4) Hypertension Qualifiers: Hypertension type: essential hypertension Qualified Code(s): I10 - Essential (primary) hypertension Is this a current diagnosis for this admission?: Yes - Plan Summary Summary: His steroids were only once a day, I have increased him to twice a day. I added a B complex vitamin, increased his vitamin C, and added melatonin. He got his second dose of ivermectin today. We gave him some loperamide for his infrequent episodes of diarrhea. If he continues to have loose stools, we should probably check him for C. difficile. He wants to have his every 4 hours nebulizer treatments all through the night, he says that they have not been giving them to him at night. We will wean oxygen as tolerated. - Time Time Spent with patient: 15-24 minutes Anticipated Discharge Disposition: Unknown Anticipated Discharge Timeframe: Unknown
[2020-06-29] MEDS: MELATONIN 5 MG TABLET PO SCH (21:39)
[2020-06-30 07:20] LABS: C-REACTIVE PROTEIN 84.8 mg/L (<10.0)
[2020-06-30] MEDS: IPRATROPIUM/ALBUTEROL 0.5-2.5 MG/3 ML AMPUL NEB SCH ×4 (08:38→20:17)
[2020-06-30] MEDS: BENZONATATE 100 MG CAPSULE PO SCH ×3 (09:23→17:11)
[2020-06-30] MEDS: ENOXAPARIN SODIUM INJ 40 MG/0.4 ML DISP.SYRIN SUBCUT SCH (09:24)
[2020-06-30] MEDS: ASPIRIN 81 MG TABLET, ENT COATED PO SCH (09:24)
[2020-06-30] MEDS: ACETAMINOPHEN 325 MG TABLET PO SCH ×3 (09:24→17:11)
[2020-06-30] MEDS: ZINC SULFATE 220 MG CAPSULE PO SCH (09:24)
[2020-06-30] MEDS: CHOLECALCIFEROL (D3) 1,000 UNIT (25 MCG) TABLET PO SCH (09:24)
[2020-06-30] MEDS: VITAMIN B COMPLEX TABLET PO SCH (09:24)
[2020-06-30] MEDS: GUAIFENESIN 600 MG TABLET.SA PO SCH ×2 (09:24→17:11)
[2020-06-30] MEDS: ASCORBIC ACID 500 MG TABLET PO SCH ×2 (09:24→17:11)
[2020-06-30] MEDS: METHYLPREDNISOLONE INJ 40 MG/1 ML SDV IV SCH ×2 (09:25→21:58)
[2020-06-30] MEDS: CEFTRIAXONE 1 GM/D5W RTU 1 GM/50 ML RTUPB IV SCH (09:25)
[2020-06-30] MEDS: FLUTICASONE/VILANTEROL 100-25 MCG/DOSE IH SCH (09:25)
[2020-06-30] MEDS: AZITHROMYCIN 500 MG in DEXTROSE 5%-WATER 250 ML IV SCH (10:20)
--- NOTE | 2020-06-30 17:03 | PDOC PROGRESS REPORT ---
Subjective Date:: 06/30/20 Subjective:: No adverse events overnight. No new complaints. He is down to 2 L on the nasal cannula and is feeling much better. Reason For Visit: EXACERBATION ASTHMA, COVID-19 Physical Exam Vital Signs: Temp Pulse Resp BP Pulse Ox 97.8 F 84 16 141/86 H 96 06/30/20 11:21 06/30/20 12:58 06/30/20 12:58 06/30/20 11:21 06/30/20 12:58 Intake & Output 06/29/20 06/30/20 07/01/20 06:59 06:59 06:59 Intake Total 875 2140 300 Output Total 600 Balance 275 2140 300 Weight 89.7 kg 81.6 kg General appearance: PRESENT: no acute distress Respiratory exam: PRESENT: decreased breath sounds, expiratory wheezes Cardiovascular exam: PRESENT: RRR. ABSENT: diastolic murmur, rubs, systolic murmur GI/Abdominal exam: PRESENT: normal bowel sounds, soft. ABSENT: distended, guarding, mass, organolmegaly, rebound, tenderness Extremities exam: PRESENT: full ROM. ABSENT: calf tenderness, clubbing, pedal edema Neurological exam: PRESENT: alert, awake, oriented to person, oriented to place, oriented to time, oriented to situation Psychiatric exam: PRESENT: appropriate affect, normal mood. Results Laboratory Results: 06/27/20 05:58 06/27/20 05:58 06/30/20 04:48 Ferritin 790.00 H C-Reactive Protein 84.8 H Impressions: Chest X-Ray 06/24/20 11:16 IMPRESSION: Ill-defined nodular opacity at the right lung base, possibly focal airspace disease, nodule or scarring. Recommend two-view follow-up to ensure resolution. Chest CT 06/26/20 00:00 IMPRESSION: There is patchy, peripheral ground-glass opacification bilaterally. The findings are nonspecific but are consistent with an atypical infectious/ inflammatory process such as COVID-19 pneumonia. Assessment and Plan - Diagnosis (1) Acute hypoxemic respiratory failure Is this a current diagnosis for this admission?: Yes (2) COVID-19 Is this a current diagnosis for this admission?: Yes (3) Asthma with acute exacerbation in adult Qualifiers: Asthma severity: moderate Asthma persistence: persistent Qualified Code(s): J45.41 - Moderate persistent asthma with (acute) exacerbation Is this a current diagnosis for this admission?: Yes (4) Hypertension Qualifiers: Hypertension type: essential hypertension Qualified Code(s): I10 - Essential (primary) hypertension Is this a current diagnosis for this admission?: Yes - Plan Summary Summary: Continue twice daily IV Solu-Medrol. I added a B complex vitamin, increased his vitamin C, and added melatonin. He has received 2 doses of ivermectin. We gave him some loperamide for his infrequent episodes of diarrhea. Continue as needed nebulizer treatments. We will wean oxygen as tolerated. - Time Time Spent with patient: 15-24 minutes Anticipated Discharge Disposition: Home, Self Care Anticipated Discharge Timeframe: Unknown
[2020-06-30] MEDS: MELATONIN 5 MG TABLET PO SCH (21:58)
[2020-07-01 07:14] LABS: C-REACTIVE PROTEIN 45.7 mg/L (<10.0)
[2020-07-01] MEDS: IPRATROPIUM/ALBUTEROL 0.5-2.5 MG/3 ML AMPUL NEB SCH ×4 (08:10→20:53)
[2020-07-01] MEDS: ACETAMINOPHEN 325 MG TABLET PO SCH ×3 (09:09→17:16)
[2020-07-01] MEDS: GUAIFENESIN 600 MG TABLET.SA PO SCH ×2 (09:09→17:16)
[2020-07-01] MEDS: ASCORBIC ACID 500 MG TABLET PO SCH ×2 (09:09→17:16)
[2020-07-01] MEDS: VITAMIN B COMPLEX TABLET PO SCH (09:09)
[2020-07-01] MEDS: ASPIRIN 81 MG TABLET, ENT COATED PO SCH (09:09)
[2020-07-01] MEDS: BENZONATATE 100 MG CAPSULE PO SCH ×3 (09:09→17:16)
[2020-07-01] MEDS: CHOLECALCIFEROL (D3) 1,000 UNIT (25 MCG) TABLET PO SCH (09:10)
[2020-07-01] MEDS: METHYLPREDNISOLONE INJ 40 MG/1 ML SDV IV SCH ×2 (09:10→21:08)
[2020-07-01] MEDS: CEFTRIAXONE 1 GM/D5W RTU 1 GM/50 ML RTUPB IV SCH (09:10)
[2020-07-01] MEDS: ZINC SULFATE 220 MG CAPSULE PO SCH (09:10)
[2020-07-01] MEDS: ENOXAPARIN SODIUM INJ 40 MG/0.4 ML DISP.SYRIN SUBCUT SCH (09:10)
[2020-07-01] MEDS: FLUTICASONE/VILANTEROL 100-25 MCG/DOSE IH SCH (09:11)
[2020-07-01] MEDS ORDERED: CLONIDINE 0.2 MG/24 HR PATCH.TDWK TD SCH (10:00)
[2020-07-01] MEDS: AZITHROMYCIN 500 MG in DEXTROSE 5%-WATER 250 ML IV SCH (10:38)
--- NOTE | 2020-07-01 16:10 | PDOC PROGRESS REPORT ---
Subjective Date:: 07/01/20 Subjective:: No adverse events overnight. No new complaints. He is on room air and is able to ambulate to the bathroom without getting too short of breath. He is extremely hesitant to leave the hospital. He has been able to rest comfortably. He is eating and drinking without difficulty. Reason For Visit: EXACERBATION ASTHMA, COVID-19 Physical Exam Vital Signs: Temp Pulse Resp BP Pulse Ox 98.0 F 92 18 130/62 H 98 07/01/20 12:00 07/01/20 12:00 07/01/20 12:00 07/01/20 12:00 07/01/20 12:00 Intake & Output 06/30/20 07/01/20 07/02/20 06:59 06:59 06:59 Intake Total 2140 780 780 Balance 2140 780 780 Weight 81.6 kg 83.1 kg General appearance: PRESENT: no acute distress Respiratory exam: PRESENT: decreased breath sounds, expiratory wheezes Cardiovascular exam: PRESENT: RRR. ABSENT: diastolic murmur, rubs, systolic murmur GI/Abdominal exam: PRESENT: normal bowel sounds, soft. ABSENT: distended, guarding, mass, organolmegaly, rebound, tenderness Extremities exam: PRESENT: full ROM. ABSENT: calf tenderness, clubbing, pedal edema Neurological exam: PRESENT: alert, awake, oriented to person, oriented to place, oriented to time, oriented to situation Psychiatric exam: PRESENT: appropriate affect, normal mood. Results Laboratory Results: 06/27/20 05:58 06/27/20 05:58 07/01/20 05:40 Ferritin 515.00 H C-Reactive Protein 45.7 H Impressions: Chest X-Ray 06/24/20 11:16 IMPRESSION: Ill-defined nodular opacity at the right lung base, possibly focal airspace disease, nodule or scarring. Recommend two-view follow-up to ensure resolution. Chest CT 06/26/20 00:00 IMPRESSION: There is patchy, peripheral ground-glass opacification bilaterally. The findings are nonspecific but are consistent with an atypical infectious/ inflammatory process such as COVID-19 pneumonia. Assessment and Plan - Diagnosis (1) Acute hypoxemic respiratory failure Is this a current diagnosis for this admission?: Yes (2) COVID-19 Is this a current diagnosis for this admission?: Yes (3) Asthma with acute exacerbation in adult Qualifiers: Asthma severity: moderate Asthma persistence: persistent Qualified Code(s): J45.41 - Moderate persistent asthma with (acute) exacerbation Is this a current diagnosis for this admission?: Yes (4) Hypertension Qualifiers: Hypertension type: essential hypertension Qualified Code(s): I10 - [facility] (primary) hypertension Is this a current diagnosis for this admission?: Yes - Plan Summary Summary: I have agreed to keep him another day for some continued IV steroids. He has completed his ivermectin dosing. We will continue vitamin supplementation. Continue as needed nebulizer treatments. If he looks as well tomorrow as he does today, he will be discharged home. - Time Time Spent with patient: 15-24 minutes Anticipated Discharge Disposition: Home, Self Care Anticipated Discharge Timeframe: within 24 hours
[2020-07-01] MEDS: MELATONIN 5 MG TABLET PO SCH (21:08)
[2020-07-02 06:21] LABS: C-REACTIVE PROTEIN 28.9 mg/L (<10.0)
[2020-07-02] MEDS: IPRATROPIUM/ALBUTEROL 0.5-2.5 MG/3 ML AMPUL NEB SCH ×2 (08:08→12:08)
[2020-07-02] MEDS: ACETAMINOPHEN 325 MG TABLET PO SCH ×2 (10:23→13:04)
[2020-07-02] MEDS: ASCORBIC ACID 500 MG TABLET PO SCH (10:23)
[2020-07-02] MEDS: ASPIRIN 81 MG TABLET, ENT COATED PO SCH (10:23)
[2020-07-02] MEDS: CLONIDINE 0.2 MG/24 HR PATCH.TDWK TD SCH (10:23)
[2020-07-02] MEDS: CEFTRIAXONE 1 GM/D5W RTU 1 GM/50 ML RTUPB IV SCH (10:23)
[2020-07-02] MEDS: METHYLPREDNISOLONE INJ 40 MG/1 ML SDV IV SCH (10:23)
[2020-07-02] MEDS: BENZONATATE 100 MG CAPSULE PO SCH (10:24)
[2020-07-02] MEDS: FLUTICASONE/VILANTEROL 100-25 MCG/DOSE IH SCH (10:24)
[2020-07-02] MEDS: GUAIFENESIN 600 MG TABLET.SA PO SCH (10:24)
[2020-07-02] MEDS: CHOLECALCIFEROL (D3) 1,000 UNIT (25 MCG) TABLET PO SCH (10:24)
[2020-07-02] MEDS: VITAMIN B COMPLEX TABLET PO SCH (10:24)
[2020-07-02] MEDS: ZINC SULFATE 220 MG CAPSULE PO SCH (10:25)
[2020-07-02] MEDS: ENOXAPARIN SODIUM INJ 40 MG/0.4 ML DISP.SYRIN SUBCUT SCH (10:31)
[2020-07-02] MEDS: AZITHROMYCIN 500 MG in DEXTROSE 5%-WATER 250 ML IV SCH (12:10)
[2020-07-02 12:17] VITALS: BP 128/85
--- NOTE | 2020-07-02 15:12 | PDOC DISCHARGE SUMMARY ---
Impression - Admit/DC Date/PCP Admission Date/Primary Care Provider: 06/27/20 13:19 NADYA RODRIGUEZ MD Discharge Date: 07/02/20 - Discharge Diagnosis (1) Acute hypoxemic respiratory failure Is this a current diagnosis for this admission?: Yes (2) COVID-19 Is this a current diagnosis for this admission?: Yes (3) Asthma with acute exacerbation in adult Is this a current diagnosis for this admission?: Yes (4) Hypertension Is this a current diagnosis for this admission?: Yes - Assessment Summary: I have agreed to keep him another day for some continued IV steroids. He has completed his ivermectin dosing. We will continue vitamin supplementation. Continue as needed nebulizer treatments. If he looks as well tomorrow as he does today, he will be discharged home. - Additional Information Resuscitation Status: Full Code Discharge Diet: Cardiac Discharge Activity: Activity As Tolerated, Balance Activity w/Rest Referrals: KIRA LIU MD [ACTIVE STAFF] - CYNTHIA MAYA MD [ACTIVE STAFF] - (1-2 weeks to establish) Prescriptions: Prednisone See Protocol PO DAILY #48 tab.ds.pk Albuterol Sulfate [Ventolin 0.083% Neb 2.5 mg/3 mL Ampul] 1 vial NEB Q4HP PRN #120 vial PRN Reason: For Wheezing Home Medications: Albuterol Sulfate [Albuterol Sulfate Hfa] 2 puff PO Q4HP PRN 06/24/20 Benzonatate 200 mg PO TID 06/24/20 Fluticasone/Salmeterol [Advair 100-50 Diskus 14 Dose/Diskus] 1 inh IH Q12 06/24/20 Guaifenesin [Mucinex] 1,200 mg PO BID 06/24/20 Albuterol Sulfate [Ventolin 0.083% Neb 2.5 mg/3 mL Ampul] 1 vial NEB Q4HP PRN #120 vial 07/02/20 Ascorbic Acid [Vitamin C 500 mg Tablet] 1,000 mg PO BID tablet 07/02/20 Aspirin [Ecotrin 81 mg EC Tablet] 81 mg PO DAILY tabec 07/02/20 Cholecalciferol (Vitamin D3) [Vitamin D3 1000 Unit Tablet] 2,000 unit PO DAILY tablet 07/02/20 Melatonin [Melatonin 5 mg Tablet] 10 mg PO QHS tablet 07/02/20 Prednisone See Protocol PO DAILY #48 tab.ds.pk 07/02/20 Vitamin B Complex [Vitamin B Complex Tablet] 1 tab PO DAILY tablet 07/02/20 Zinc Sulfate [Zinc-220 Capsule] 220 mg PO DAILY capsule 07/02/20 History of Present Illiness History of Present Illness: PARAMJIT HALL is a 45 year old male hx of asthma with 4 previous intubation last one 1995 for acute respiratory failure, HTN who came in the ED today due to shortness of breath. According to the patient he has been having shortness of breath with minimal cough for the past 1 week. He has increasingly used his rescue inhaler but still feels short of breath with associated wheezing. He denied any fever or recent exposure to Covid. ED blood pressure was 124/84, pulse rate of 87, respiratory rate of 18 O2 saturation of 96% on 2 L of nasal cannula, temperature 98.2. CBC was unremarkable, CMP showed mild hyponatremia 130.8, bicarb of 20, creatinine 0.9. Chest x-ray was unremarkable He consulted telehealth and was prescribed prednisone 1 week ago which did not help with his symptoms. Hospitalist service was called for further evaluation and management. Hospital Course Hospital Course: He was treated with steroids and ivermectin and supplemental O2. He had a favorable response to treatment. He required increasing doses of steroids get him up to the recommended dose, and he responded very favorably to this. He has had to be on steroids at several times throughout his life because of his asthma so he is not steroid renay. He was able to transition to room air without any difficulty. He was able to ambulate in the room without getting short of breath. He will continue with vitamin supplementation and a steroid taper outside the hospital. He will resume his usual medications for asthma. He wanted to change primary care providers and so we got him an appointment with a new primary care provider, Dr. Maya. His labs and examination were reassuring and he was discharged in stable condition. Physical Exam Vital Signs: Temp Pulse Resp BP Pulse Ox 97.5 F 73 20 128/85 H 100 07/02/20 12:15 07/02/20 12:15 07/02/20 12:15 07/02/20 12:15 07/02/20 12:15 Intake & Output 07/01/20 07/02/20 07/03/20 06:59 06:59 06:59 Intake Total 780 2140 Output Total 2 Balance 780 2138 Weight 83.1 kg 89.4 kg General appearance: PRESENT: no acute distress Respiratory exam: PRESENT: decreased breath sounds, expiratory wheezes Cardiovascular exam: PRESENT: RRR. ABSENT: diastolic murmur, rubs, systolic murmur GI/Abdominal exam: PRESENT: normal bowel sounds, soft. ABSENT: distended, guarding, mass, organolmegaly, rebound, tenderness Extremities exam: PRESENT: full ROM. ABSENT: calf tenderness, clubbing, pedal edema Neurological exam: PRESENT: alert, awake, oriented to person, oriented to place, oriented to time, oriented to situation Psychiatric exam: PRESENT: appropriate affect, normal mood. Results Laboratory Results: WBC 10.6 10^3/uL (4.0-10.5) H 06/27/20 05:58 RBC 4.39 10^6/uL (4.35-5.55) 06/27/20 05:58 Hgb 14.0 g/dL (13.5-17.0) 06/27/20 05:58 Hct 40.3 % (37.9-51.0) 06/27/20 05:58 MCV 92 fl (80-97) 06/27/20 05:58 MCH 31.9 pg (27.0-33.4) 06/27/20 05:58 MCHC 34.7 g/dL (32.0-36.0) 06/27/20 05:58 RDW 13.2 % (11.5-14.0) 06/27/20 05:58 Plt Count 215 10^3/uL (150-450) 06/27/20 05:58 Lymph % (Auto) Not Reportable 06/27/20 05:58 Carter % (Auto) Not Reportable 06/27/20 05:58 Eos % (Auto) Not Reportable 06/27/20 05:58 Baso % (Auto) Not Reportable 06/27/20 05:58 Absolute Neuts (auto) Not Reportable 06/27/20 05:58 Absolute Lymphs (auto) Not Reportable 06/27/20 05:58 Absolute Monos (auto) Not Reportable 06/27/20 05:58 Absolute Eos (auto) Not Reportable 06/27/20 05:58 Absolute Basos (auto) Not Reportable 06/27/20 05:58 Total Counted 100 06/27/20 05:58 Seg Neutrophils % Not Reportable 06/27/20 05:58 Seg Neuts % (Manual) 89 % (42-78) H 06/27/20 05:58 Band Neutrophils % 4 % (3-5) 06/24/20 11:21 Lymphocytes % (Manual) 8 % (13-45) L 06/27/20 05:58 Monocytes % (Manual) 3 % (3-13) 06/27/20 05:58 Eosinophils % (Manual) 0 % (0-6) 06/27/20 05:58 Basophils % (Manual) 0 % (0-2) 06/27/20 05:58 Abs Neuts (Manual) 9.4 10^3/uL (1.7-8.2) H 06/27/20 05:58 Abs Lymphs (Manual) 0.8 10^3/uL (0.5-4.7) 06/27/20 05:58 Abs Monocytes (Manual) 0.3 10^3/uL (0.1-1.4) 06/27/20 05:58 Absolute Eos (Manual) 0.0 10^3/uL (0.0-0.6) 06/27/20 05:58 Abs Basophils (Manual) 0.0 10^3/uL (0.0-0.2) 06/27/20 05:58 Platelet Comment ADEQUATE 06/27/20 05:58 RBC Morph Comment NORMO-CYTIC/CHROMIC 06/27/20 05:58 D-Dimer 0.31 ug/mL (0.00-0.50) 07/02/20 05:16 Sodium 132.0 mmol/L (137-145) L 06/27/20 05:58 Potassium 4.0 mmol/L (3.6-5.0) 06/27/20 05:58 Chloride 103 mmol/L (98-107) 06/27/20 05:58 Carbon Dioxide 22 mmol/L (22-30) 06/27/20 05:58 Anion Gap 7 (5-19) 06/27/20 05:58 BUN 16 mg/dL (7-20) 06/27/20 05:58 Creatinine 0.71 mg/dL (0.52-1.25) 06/27/20 05:58 Est GFR ( Amer) > 60 (>60) 06/27/20 05:58 Est GFR (MDRD) Non-Af > 60 (>60) 06/27/20 05:58 Glucose 107 mg/dL (75-110) 06/27/20 05:58 POC Glucose 92 mg/dL (70-110) 06/26/20 07:20 Calcium 8.6 mg/dL (8.4-10.2) 06/27/20 05:58 Magnesium 1.8 mg/dL (1.6-2.3) 06/27/20 05:58 Ferritin 500.00 ng/mL (17.9-464.0) H 07/02/20 05:16 Total Bilirubin 1.2 mg/dL (0.2-1.3) 06/27/20 05:58 Direct Bilirubin 0.0 mg/dL (0.0-0.4) 06/27/20 05:58 Neonat Total Bilirubin Not Reportable 06/27/20 05:58 Neonat Direct Bilirubin Not Reportable 06/27/20 05:58 Neonat Indirect Bili Not Reportable 06/27/20 05:58 AST 31 U/L (17-59) 06/27/20 05:58 ALT 50 U/L (<50) 06/27/20 05:58 Alkaline Phosphatase 62 U/L (38-126) 06/27/20 05:58 C-Reactive Protein 28.9 mg/L (<10.0) H 07/02/20 05:16 Total Protein 6.4 g/dL (6.3-8.2) 06/27/20 05:58 Albumin 3.3 g/dL (3.5-5.0) L 06/27/20 05:58 Influenza A (Rapid) Cancelled 06/27/20 09:45 Influenza A (RT-PCR) NEGATIVE (NEGATIVE) 06/26/20 14:39 Influenza B (Rapid) Cancelled 06/27/20 09:45 Influenza B (RT-PCR) NEGATIVE (NEGATIVE) 06/26/20 14:39 RSV (RT-PCR) NEGATIVE (NEGATIVE) 06/26/20 14:39 SARS-CoV-2 Rap RNA(RT-PCR) POSITIVE (NEGATIVE) 06/26/20 14:39 Blood Type O NEGATIVE 06/27/20 10:29 Impressions: Chest X-Ray 06/24/20 11:16 IMPRESSION: Ill-defined nodular opacity at the right lung base, possibly focal airspace disease, nodule or scarring. Recommend two-view follow-up to ensure resolution. Chest CT 06/26/20 00:00 IMPRESSION: There is patchy, peripheral ground-glass opacification bilaterally. The findings are nonspecific but are consistent with an atypical infectious/ inflammatory process such as COVID-19 pneumonia. Plan Time Spent: Greater than 30 Minutes Stroke Is this a Stroke Patient?: No Acute Heart Failure Is this a Heart Failure Patient?: No
== END 2020-07-02 15:09 | disposition home or self-care (01) | DRG 177 ==
LOC: ER 10:56 → EH 15:25 → 4N 16:24 → 3S 06-26 21:25 → OBSVTOIN 06-27 13:19
PROVIDERS: ADMIT Internal Medicine; ATTEND Family Medicine
DX: U07.1 COVID-19 (principal); J96.01 Acute respiratory failure with hypoxia; J45.41 Moderate persistent asthma with (acute) exacerbation; E87.1 Hypo-osmolality and hyponatremia; I10 Essential (primary) hypertension; Z79.51 Long term (current) use of inhaled steroids; Z79.899 Other long term (current) drug therapy; Z83.3 Family history of diabetes mellitus; Z82.49 Family history of ischemic heart disease and other diseases of the circulatory system; Z79.52 Long term (current) use of systemic steroids; Z88.8 Allergy status to other drugs, medicaments and biological substances
CPT/HCPCS: 36415; 71045; 71260; 80053; 82728; 82962; 83735; 85025; 85379; 86140; 86900; 86901; 93005; 93010; 94640; 96365; 96366; 96375; 99285; 0241U; C9803; G0378; J0456; J0696; J1650; J2920; J2930; J3475; J3490; J7030; J7060; J7120; J7613